=== PATIENT | female | born 1965 | race Caucasian/White ===

== ENCOUNTER 2017-05-31 00:26 | Emergency (ER) | payer BC | END 2017-05-31 01:52 | disposition home or self-care (01) | LOC: D.ER 00:26 | DX: S46.912A Strain of unspecified muscle, fascia and tendon at shoulder and upper arm level, left arm, initial encounter (principal); X58.XXXA Exposure to other specified factors, initial encounter; Y93.89 Activity, other specified; Y92.89 Other specified places as the place of occurrence of the external cause ==

== ENCOUNTER 2017-06-05 19:58 | Emergency (ER) | payer BC | END 2017-06-05 22:17 | disposition home or self-care (01) | LOC: D.ER 19:58 | DX: R10.11 Right upper quadrant pain (principal); S39.011D Strain of muscle, fascia and tendon of abdomen, subsequent encounter; X58.XXXD Exposure to other specified factors, subsequent encounter ==

== ENCOUNTER 2017-06-21 22:32 | Emergency (ER) | payer BC | END 2017-06-21 23:05 | disposition home or self-care (01) | LOC: D.ER 22:32 | DX: M79.7 Fibromyalgia (principal) ==